=== PATIENT | female | born 1995 | race Caucasian/White ===

== ENCOUNTER → 2019-10-20 | Outpatient (CLI) | payer BC, OTHER ==
[~2019-10-20] MED LIST: ATOM60 PO
== END | disposition home or self-care (01) ==
LOC: LAB SHORT 18:43 → LAB 18:43
DX: Z09 Encounter for follow-up examination after completed treatment for conditions other than malignant neoplasm (principal); Z86.14 Personal history of Methicillin resistant Staphylococcus aureus infection
CPT/HCPCS: 87081

== ENCOUNTER → 2019-11-17 | Outpatient (CLI) | payer BC, OTHER | END | disposition home or self-care (01) | LOC: LAB 15:13 → LAB SHORT 15:13 | DX: Z86.14 Personal history of Methicillin resistant Staphylococcus aureus infection (principal) | CPT/HCPCS: 87081 ==

== ENCOUNTER → 2019-12-15 | Outpatient (CLI) | payer BC, OTHER | END | disposition home or self-care (01) | LOC: LAB 15:51 → LAB SHORT 15:51 | DX: Z09 Encounter for follow-up examination after completed treatment for conditions other than malignant neoplasm (principal); Z86.14 Personal history of Methicillin resistant Staphylococcus aureus infection | CPT/HCPCS: 87081 ==

== ENCOUNTER 2020-04-17 12:15 | Inpatient (IN) | payer BC, OTHER ==
[~2020-04-17] VITALS: Ht 170.2 cm; Wt 88.5 kg
[2020-04-17] MEDS ORDERED: PRENATAL TABLE1 EAC2 PO (12:37)
--- NOTE | 2020-04-17 13:11 | NUR ---
BORN IN [facility] NO APGARS DONE
--- NOTE | 2020-04-17 13:47 | NUR ---
REPORT TO YURY ARTHUR FOR LUNCH
--- NOTE | 2020-04-17 14:50 | NUR ---
REPORT OFF TO YURY ARTHUR RN
[2020-04-18 07:21] LABS: BASOPHILS ABSOLUTE AUTO 0.04 K/mm3 (0.00-0.23); BASOPHILS PERCENT AUTO 0 % (0-2); EOSINOPHILS ABSOLUTE AUTO 0.04 K/mm3 (0.00-0.68); EOSINOPHILS PERCENT AUTO 0 % (0-6); Hematocrit 33.9 % (33.0-51.0); IMMATURE GRAN ABSOLUTE AUTO 0.08 K/mm3 (0.00-0.10); IMMATURE GRAN PERCENT AUTO 1 % (0-1); LYMPHOCYTES ABSOLUTE AUTO 2.78 K/mm3 (0.84-5.20); LYMPHOCYTES PERCENT AUTO 17 % (21-46); MONOCYTES ABSOLUTE AUTO 1.15 K/mm3 (0.16-1.47); MONOCYTES PERCENT AUTO 7 % (4-13); Mean Corpuscular HGB 28.6 pg (26.0-34.0); Mean Corpuscular HGB Conc 32.4 g/dL (31.5-36.5); Mean Corpuscular Volume 88 fL (80-100); Mean Platelet Volume 11.9 fL (9.1-12.4); NEUTROPHILS ABSOLUTE AUTO 12.63 K/mm3 (1.96-9.15); NEUTROPHILS PERCENT AUTO 76 % (41-73); Platelet Count 199 K/mm3 (150-400); RDW Coefficient Variation 13.2 % (11.7-14.2); RDW Standard Deviation 43.1 fL (35.1-46.3); Red Blood Cell Count 3.84 M/mm3 (3.80-5.20); White Blood Cell Count 16.72 K/mm3 (4.00-11.30)
--- NOTE | 2020-04-18 12:32 | NUR ---
[facility]ORE REFERRAL SENT FOR FOLLOW UP AT HOME. MOTHER APPEARS TO BE CARING APPROPRIATE FOR . BF WELL AND CHANGING DIAPERS. LOTS OF GOOD QUESTIONS ASKED. STATES SHE DOES LIVE WITH FOB MOTHER WHO IS A GOOD SUPPORT FOR THEM BUT THE HOUSE DOESNT SOUND VERY CLEAN AND THEY ARENT SUPPOSE TO BE LIVING THERE D/T HOUSING RULES. DISCUSSED DISCHARGE THIS EVENING OR FIRST THING IN THE MORNING DEPENDING ON HOW COMFORTABLE THE MOTHER FEELS. FOB JUST GOT THERE SO THEY WILL DISCUSS AND LET ME KNOW
[2020-04-19] MEDS ORDERED: IBUP800 PO (10:42)
--- NOTE | 2020-04-19 11:57 | NUR ---
DISCHARGE SEE DISCHARGE NOTE BUT VERY THOROOUGH DISCHARGE DONE. LOTS OF NOTE TAKING A APPORPIRATE QUESTIONS ASKED. CSD WAS NOTIFIED D/T SOME CONCERN OF RESOURCES AND BABY CARE. MOTHER AND FATHER WERE BOTH APPROPIATE AND DID SEE FOB HOLDING BABY AND ASSISTING WITH GETTING HIM DRESSED. MOTHER VERBALIZES UNDERSTANDING OF DC INSTRUCTIONS AND FOLLOW UP APPOINTMENTS. VSS AND LOCHIA SCANT. DC HOME STABLE.
== END 2020-04-19 11:45 | disposition home or self-care (01) | DRG 807 ==
LOC: OBS 12:15 → BC 12:20 → OBS 12:36 → BC 12:38
PROVIDERS: Nurse Practitioner Obstetrics & Gynecology; ADMIT Advanced Practice Midwife
PROC: 10E0XZZ Delivery of Products of Conception, External Approach (ICD-10-PCS; principal; 2020-04-18)
DX: Z39.0 Encounter for care and examination of mother immediately after delivery (principal); Z37.0 Single live birth
CPT/HCPCS: 36415; 59414; 85025; J1885; J2590

== ENCOUNTER 2021-03-13 16:19 | Emergency (ER) | payer BC, OTHER ==
[~2021-03-13] VITALS: Ht 170.2 cm; Wt 74.8 kg
[~2021-03-13 16:19] MED LIST changes: +IBUP800 PO; +PRENATAL TABLE1 EAC2 PO
[2021-03-13 17:39] LABS: Source, Urine Clean Catch
[2021-03-13 17:52] LABS: BASOPHILS ABSOLUTE AUTO 0.02 K/mm3 (0.00-0.23); BASOPHILS PERCENT AUTO 0 % (0-2); EOSINOPHILS ABSOLUTE AUTO 0.15 K/mm3 (0.00-0.68); EOSINOPHILS PERCENT AUTO 3 % (0-6); Hematocrit 41.1 % (33.0-51.0); Hemoglobin 13.3 g/dL (11.5-16.0); IMMATURE GRAN ABSOLUTE AUTO 0.02 K/mm3 (0.00-0.10); IMMATURE GRAN PERCENT AUTO 0 % (0-1); LYMPHOCYTES ABSOLUTE AUTO 1.68 K/mm3 (0.84-5.20); LYMPHOCYTES PERCENT AUTO 29 % (21-46); MONOCYTES ABSOLUTE AUTO 0.56 K/mm3 (0.16-1.47); MONOCYTES PERCENT AUTO 10 % (4-13); Mean Corpuscular HGB 29.8 pg (26.0-34.0); Mean Corpuscular HGB Conc 32.4 g/dL (31.5-36.5); Mean Corpuscular Volume 92 fL (80-100); Mean Platelet Volume 10.7 fL (9.1-12.4); NEUTROPHILS PERCENT AUTO 58 % (41-73); Platelet Count 199 K/mm3 (150-400); RDW Coefficient Variation 11.7 % (11.7-14.2); RDW Standard Deviation 39.3 fL (35.1-46.3); Red Blood Cell Count 4.47 M/mm3 (3.80-5.20); White Blood Cell Count 5.83 K/mm3 (4.00-11.30)
[2021-03-13 18:18] LABS: Appearance, Urine Hazy (Clear); Bilirubin, Urine Neg (Neg); Blood, Urine Neg (Neg); Color, Urine Yellow (P-Yellow); Glucose Qualitative, Urine Neg (Neg); Ketones, Urine 1+ (Neg); Leukocyte Esterase, Urine 2+ (Neg); Nitrite, Urine Neg (Neg); Protein, Urine 2+ (Neg); Urobilinogen, Urine NORM (Normal)
[2021-03-13 18:21] LABS: SARS-Cov-2 (COVID-19) PCR, MMC NEGATIVE (NEGATIVE)
[2021-03-13 18:30] LABS: Bacteria Many /hpf; Red Blood Cells, Urine Not Seen /hpf (0-2); Squamous Epithelial Cells Many /hpf (Few)
[2021-03-13 18:46] LABS: Alanine Aminotransfer (ALT/SGP 22 U/L (12-78); Albumin, Blood 3.6 g/dL (3.4-5.0); Albumin/Globulin Ratio 0.9 (0.8-1.8); Alk Phos 98 U/L (50-136); Anion Gap 5 mmol/L (6-16); Aspartate Aminotrans (AST/SGOT 13 U/L (12-37); Bilirubin, Total 0.4 mg/dL (0.1-1.0); Blood Urea Nitrogen 10 mg/dL (8-24); Bun/Creatinine Ratio 15.1 (12.0-20.0); CO2, Blood 26 mmol/L (21-32); Calcium, Blood 8.5 mg/dL (8.5-10.1); Chloride, Blood 109 mmol/L (98-108); Creatinine, Blood 0.66 mg/dL (0.40-1.00); Glomerular Filtration Rate >60 (60-); Glucose, Blood 87 mg/dL (70-99); Potassium, Blood 3.4 mmol/L (3.5-5.5); Sodium, Blood 140 mmol/L (136-145); Total Protein, Blood 7.6 g/dL (6.4-8.2)
== END 2021-03-13 19:34 | disposition home or self-care (01) ==
LOC: ER 16:19
PROVIDERS: Family Medicine
DX: R53.1 Weakness (principal); F32.9 Major depressive disorder, single episode, unspecified; Z20.822 Contact with and (suspected) exposure to COVID-19; Z87.891 Personal history of nicotine dependence
CPT/HCPCS: 36415; 80053; 81001; 81025; 84443; 85025; 87086; 93005; 93010; 99283-25; U0004

== ENCOUNTER 2021-11-21 03:35 | Emergency (ER) | payer BC, OTHER ==
[~2021-11-21] VITALS: Ht 170.2 cm; Wt 89.8 kg
[2021-11-21 04:05] LABS: BASOPHILS ABSOLUTE AUTO 0.04 K/mm3 (0.00-0.23); BASOPHILS PERCENT AUTO 0 % (0-2); EOSINOPHILS ABSOLUTE AUTO 0.11 K/mm3 (0.00-0.68); EOSINOPHILS PERCENT AUTO 1 % (0-6); Hematocrit 40.6 % (33.0-51.0); Hemoglobin 13.4 g/dL (11.5-16.0); IMMATURE GRAN ABSOLUTE AUTO 0.02 K/mm3 (0.00-0.10); IMMATURE GRAN PERCENT AUTO 0 % (0-1); LYMPHOCYTES ABSOLUTE AUTO 3.41 K/mm3 (0.84-5.20); LYMPHOCYTES PERCENT AUTO 35 % (21-46); MONOCYTES ABSOLUTE AUTO 0.76 K/mm3 (0.16-1.47); MONOCYTES PERCENT AUTO 8 % (4-13); Mean Corpuscular HGB 29.1 pg (26.0-34.0); Mean Corpuscular Volume 88 fL (80-100); Mean Platelet Volume 10.5 fL (9.1-12.4); NEUTROPHILS ABSOLUTE AUTO 5.35 K/mm3 (1.96-9.15); NEUTROPHILS PERCENT AUTO 55 % (41-73); Platelet Count 230 K/mm3 (150-400); RDW Coefficient Variation 11.8 % (11.7-14.2); RDW Standard Deviation 37.8 fL (35.1-46.3); White Blood Cell Count 9.69 K/mm3 (4.00-11.30)
[2021-11-21] MEDS ORDERED: DEPO-PROVE150 MG/1 M IM (04:07)
[2021-11-21 04:22] LABS: Alanine Aminotransfer (ALT/SGP 29 U/L (12-78); Albumin, Blood 3.8 g/dL (3.4-5.0); Alk Phos 100 U/L (50-136); Anion Gap 6 mmol/L (6-16); Aspartate Aminotrans (AST/SGOT 18 U/L (12-37); Bilirubin, Total 0.2 mg/dL (0.1-1.0); Blood Urea Nitrogen 15 mg/dL (8-24); Bun/Creatinine Ratio 22.4 (12.0-20.0); CO2, Blood 25 mmol/L (21-32); Calcium, Blood 8.7 mg/dL (8.5-10.1); Chloride, Blood 111 mmol/L (98-108); Creatinine, Blood 0.67 mg/dL (0.40-1.00); Globulin, Blood 3.9 g/dL (2.2-4.0); Glomerular Filtration Rate >60 (60-); Glucose, Blood 99 mg/dL (70-99); Sodium, Blood 142 mmol/L (136-145); Total Protein, Blood 7.7 g/dL (6.4-8.2)
[2021-11-21] MEDS ORDERED: NAPROXEN250 M1 PO (04:51)
== END 2021-11-21 05:08 | disposition home or self-care (01) ==
LOC: ER 03:35
PROVIDERS: Emergency Medicine
DX: R07.9 Chest pain, unspecified (principal); G47.30 Sleep apnea, unspecified; R00.0 Tachycardia, unspecified; Z91.040 Latex allergy status; Z91.048 Other nonmedicinal substance allergy status
CPT/HCPCS: 36415; 80053; 85025; 93005; 93010; 96374; 99284-25; J1885

== ENCOUNTER 2023-07-23 07:56 | Emergency (ER) | payer OTHER ==
[~2023-07-23] VITALS: Ht 170.2 cm; Wt 72.6 kg
[~2023-07-23 07:56] MED LIST changes: +DEPO-PROVE150 MG/1 M IM; +NAPROXEN250 M1 PO
[2023-07-23 09:00] VITALS: BP 112/99
[2023-07-23] MEDS ORDERED: Vistaril25 MG PO (09:37)
== END 2023-07-23 09:53 | disposition home or self-care (01) ==
LOC: ER 07:56
DX: F41.9 Anxiety disorder, unspecified (principal); Z91.040 Latex allergy status; Z91.048 Other nonmedicinal substance allergy status; Z87.891 Personal history of nicotine dependence
CPT/HCPCS: 99283-25; A9270

== ENCOUNTER 2024-10-15 08:49 | Emergency (ER) | payer OTHER ==
[~2024-10-15] VITALS: Ht 170.2 cm; Wt 90.7 kg
[~2024-10-15 08:49] MED LIST changes: +ONDA4ODT MM; +Vistaril25 MG PO
[2024-10-15 09:15] VITALS: BP 143/97
[2024-10-15] MEDS ORDERED: Ibuprofen 600 MG Tab PO ONE (09:25)
[2024-10-15] MEDS ORDERED: Ondansetron 4 MG SoluTab SL ONE (09:25)
[2024-10-15 10:00] LABS: CORONAVIRUS COVID-19 AG Negative (NEGATIVE); INFLUENZA A AG Positive (NEGATIVE); INFLUENZA B AG Negative (NEGATIVE)
[2024-10-15] MEDS ORDERED: ONDA4ODT MM (10:12)
== END 2024-10-15 10:17 | disposition home or self-care (01) ==
LOC: ER 08:49
PROVIDERS: Student in an Organized Health Care Education/Training Program
DX: J10.1 Influenza due to other identified influenza virus with other respiratory manifestations (principal); Z87.891 Personal history of nicotine dependence; Z91.041 Radiographic dye allergy status; Z91.048 Other nonmedicinal substance allergy status
CPT/HCPCS: 87428-QW; 99283; A9270